=== PATIENT | female | born 1995 | race Caucasian/White ===

== ENCOUNTER 2016-06-06 13:33 | Emergency (ER) | payer OTHER ==
[2016-06-06] MEDS ORDERED: DEXAMETHASONE SOD PHOS 10 MG/1 ML VIAL ONE (14:36)
== END 2016-06-06 14:56 | disposition home or self-care (01) ==
LOC: ED 13:33
DX: J02.0 Streptococcal pharyngitis (principal); J45.909 Unspecified asthma, uncomplicated